=== PATIENT | female | born 1945 | race Caucasian/White ===

== ENCOUNTER 2024-02-24 22:37 | Emergency (ER) | payer MEDICARE, MEDICAID ==
[~2024-02-24] VITALS: Ht 167.6 cm; Wt 83.9 kg
[2024-02-24 22:59] VITALS: BP_SYST 156; PULSE 82; RESP 18; TEMP 98; O2SAT 97
[2024-02-24] MEDS ORDERED: AUG875 PO (23:09)
[2024-02-24] MEDS: DIPHTH,PERTUSS(ACELL),TET VAC 0.5 ML VIAL (Tdap) I.M. ONE (23:14)
[2024-02-24 23:16] VITALS: BP_SYST 156; PULSE 82; RESP 18; TEMP 98; O2SAT 97
== END 2024-02-24 23:17 | disposition home or self-care (01) ==
LOC: SED 22:37
DX: S61.252A Open bite of right middle finger without damage to nail, initial encounter (principal); Z79.899 Other long term (current) drug therapy; W54.0XXA Bitten by dog, initial encounter; Y93.89 Activity, other specified; Y92.89 Other specified places as the place of occurrence of the external cause; Y99.8 Other external cause status
CPT/HCPCS: 90715; 99283